=== PATIENT | female | born 1945 | race Caucasian/White ===

== ENCOUNTER 2017-08-26 14:57 | Inpatient (IN) | payer MEDICARE ==
[~2017-08-26] VITALS: Ht 167.6 cm; Wt 68.9 kg
[2017-08-26 16:20] LABS: BILIRUBIN,URINE 1+ (NEGATIVE); KETONES,URINE NEGATIVE (NEGATIVE); LEUKOCYTE ESTERASE ,URINE 1+ (NEGATIVE); NITRITE,URINE NEGATIVE (NEGATIVE); URINE UROBILINOGEN 0.2 mg/dL (0.2 - 1)
[2017-08-26 16:24] LABS: CLARITY,URINE SL CLOUDY (CLEAR); COLOR,URINE STRAW (YELLOW); PROTEIN,URINE DIPSTICK TRACE (NEGATIVE)
[2017-08-26 16:53] LABS: BASOPHILS % 0.2 % (0.0-1.0); EOSINOPHILS % 0.4 % (0.0-6.0); HEMATOCRIT 39.4 % (34.2-44.1); HEMOGLOBIN 13.1 g/dL (12.0-16.0); MEAN CORPUSCULAR HEMOGLOBIN 30.8 pg (28-32); MEAN CORPUSCULAR HGB CONC 33.2 g/dL (31-35); MEAN CORPUSCULAR VOLUME 92.7 fL (81-99); MONOCYTES # (AUTO) 0.7 (0.2-0.8); MONOCYTES % 8.2 % (4.4-11.3); NEUTROPHILS # (AUTO) 5.4 (2.1-6.9); NEUTROPHILS % 66.8 % (38.7-80.0); PLATELET COUNT 304 x10e3/uL (140-360); RED BLOOD COUNT 4.25 x10e6/uL (3.6-5.1); RED CELL DISTRIBUTION WIDTH 13.2 % (11.7-14.4)
[2017-08-26 16:56] LABS: BACTERIA,URINE FEW /HPF; RBC,URINE 0-5 /HPF (0-5); WBC,URINE (MAN) 0-5 /HPF (0-5)
[2017-08-26 16:57] LABS: EPITHELIAL CELLS,URINE RARE /LPF
[2017-08-26 17:01] LABS: INR 1.03; PARTIAL THROMBOPLASTIN TIME 28.1 seconds (23.8-35.5); PROTHROMBIN TIME 12.7 seconds (11.9-14.5)
[2017-08-26 17:08] LABS: ALANINE AMINOTRANSFERASE 22 IU/L (0-55); ALBUMIN/GLOBULIN RATIO 1.2 (0.8-2.0); ALKALINE PHOSPHATASE 82 IU/L (40-150); ANION GAP 14.3 mmol/L (8-16); BLOOD UREA NITROGEN 9 mg/dL (7-26); BUN/CREATININE RATIO 12 (6-25); CALCIUM 9.2 mg/dL (8.4-10.2); CARBON DIOXIDE 26 mmol/L (22-29); CHLORIDE 105 mmol/L (98-107); CREATININE, SERUM 0.75 mg/dL (0.57-1.11); EST GLOMERULAR FILTRATION RATE > 60 ML/MIN (60-); GLUCOSE 88 mg/dL (74-118); POTASSIUM 3.3 mmol/L (3.5-5.1); SODIUM 142 mmol/L (136-145)
[2017-08-26] MEDS ORDERED: SODIUM CHLORIDE 0.9% 1000ML 500 ML IV STA (17:53)
[2017-08-26] MEDS ORDERED: SODIUM CHLORIDE 0.9% 1000ML 1,000 ML IV STA (17:53)
[2017-08-26] MEDS ORDERED: METRONIDAZOLE 500MG/NS 100ML 100 ML IV ONE (18:00)
[2017-08-26] MEDS ORDERED: CIPROFLOXACIN 400 MG/D5W 200ML 200 ML IV ONE (18:00)
[2017-08-26] MEDS ORDERED: DIATRIZOATE MEGL/DIATRIZOA SOD 30 ML BTL PO ONE (18:06)
[2017-08-26 18:19] LABS: MAGNESIUM 1.9 MG/DL (1.3-2.1)
[2017-08-26] MEDS: PANTOPRAZOLE 40 MG 10ML VIAL IV SCH (18:30)
[2017-08-26] MEDS: METRONIDAZOLE 500MG/NS 100ML 100 ML IV SCH (18:30)
--- NOTE | 2017-08-26 18:34 | Diagnostic Imaging Report ---
PROCEDURE: A single AP view of the chest. COMPARISON: None. INDICATIONS: BLEEDING COLON FINDINGS: Lines/tubes: None. Lungs: The lungs are well inflated and clear. There is no evidence of pneumonia or pulmonary edema. Pleura: There is no pleural effusion or pneumothorax. Heart and mediastinum: The heart and the mediastinum are unremarkable. Bones: No acute bony abnormality. IMPRESSION: 1. No acute cardiopulmonary disease. Dictated by: Juanito Patel M.D. on 08/26/2017 at 18:34 Electronically approved by: Juanito Patel M.D. on 08/26/2017 at 18:34
[2017-08-26] MEDS ORDERED: SODIUM CHLORIDE 0.9% 50ML 50 ML ONE (19:31)
[2017-08-26] MEDS ORDERED: IOPAMIDOL 370 MG/ML 200 ML INFUS..BTL INJ ONE (19:31)
[2017-08-26 20:24] VITALS: BP 163/72
--- NOTE | 2017-08-26 20:28 | Diagnostic Imaging Report ---
EXAM: CT Abdomen and Pelvis WITH contrast INDICATION: Abdominal pain, rectal bleeding, colitis COMPARISON: None. TECHNIQUE: Abdomen and pelvis were scanned utilizing a multidetector helical scanner from the lung base to the pubic symphysis after administration of IV contrast. Coronal and sagittal reformations were obtained. Routine protocol was performed. Scan was performed when during portal venous phase. IV CONTRAST: 100 mL of Isovue-370 ORAL CONTRAST: Gastrografin RADIATION DOSE: Total DLP: 364 mGy*cm Estimated effective dose: (DLP x 0.015 x size factor) mSv COMPLICATIONS: None FINDINGS: LINES and TUBES: None. LOWER THORAX: Unremarkable HEPATOBILIARY: No focal hepatic lesions. No biliary ductal dilation. GALLBLADDER: No radio-opaque stones or sludge. No wall thickening. SPLEEN: No splenomegaly. PANCREAS: No focal masses or ductal dilatation. ADRENALS: No adrenal nodules KIDNEYS/URETERS: Kidneys enhance symmetrically. No hydronephrosis. No cystic or solid mass lesions. No stones. Right extrarenal pelvis. GI TRACT: No abnormal distention, wall thickening, or evidence of bowel obstruction. Extensive diverticulosis throughout the sigmoid and descending colon. Severe wall thickening throughout the descending colon. No surrounding fluid collections, abscesses. Appendix is mildly enlarged measuring 0.7 cm in diameter without associated enhancement or wall thickening or surrounding fat stranding. PELVIC ORGANS/BLADDER: Unremarkable. LYMPH NODES: No lymphadenopathy. VESSELS: Unremarkable. PERITONEUM / RETROPERITONEUM: No free air or fluid. BONES: Severe degenerative changes at L2-L3. SOFT TISSUES: Unremarkable. IMPRESSION: Extensive diverticulosis without acute diverticulitis of the descending colon. Recommend follow-up until resolution to exclude underlying pathology. Mild nonspecific prominence of the appendix without wall thickening or surrounding inflammatory changes. Signed by: Dr. Latia Johnson M.D. on 08/26/2017 8:24 PM
[2017-08-26] MEDS ORDERED: PEG (High)/E-LYTE SOLN 4,000 ML BTL PO ONE (22:45)
[2017-08-27] VITALS (11 sets, daily range): BP systolic 120–151; BP diastolic 59–72
[2017-08-27] MEDS: METRONIDAZOLE 500MG/NS 100ML 100 ML IV SCH ×4 (01:21→21:00)
[2017-08-27] MEDS: SODIUM CHLORIDE 0.9% 1000ML 1,000 ML IV SCH ×4 (01:57→11:10)
[2017-08-27] MEDS: CIPROFLOXACIN 400 MG/D5W 200ML 200 ML IV SCH ×2 (05:04→17:30)
[2017-08-27 07:57] LABS: HEMATOCRIT 34.9 % (34.2-44.1); HEMOGLOBIN 11.3 g/dL (12.0-16.0)
[2017-08-27 08:13] LABS: ANION GAP 12.5 mmol/L (8-16); BLOOD UREA NITROGEN 5 mg/dL (7-26); BUN/CREATININE RATIO 8 (6-25); CALCIUM 8.3 mg/dL (8.4-10.2); CARBON DIOXIDE 25 mmol/L (22-29); CHLORIDE 107 mmol/L (98-107); CREATININE, SERUM 0.61 mg/dL (0.57-1.11); EST GLOMERULAR FILTRATION RATE > 60 ML/MIN (60-); GLUCOSE 85 mg/dL (74-118); POTASSIUM 3.5 mmol/L (3.5-5.1); SODIUM 141 mmol/L (136-145)
[2017-08-27] MEDS: PANTOPRAZOLE 40 MG 10ML VIAL IV SCH (09:00)
[2017-08-27] MEDS: MORPHINE SULFATE 2 MG/ML SYR IV PRN (11:10)
[2017-08-27] MEDS: ONDANSETRON HCL INJ 2 MG/ML VIAL IV PRN (11:10)
[2017-08-27] MEDS ORDERED: LIDOCAINE HCL 2% LOCAL INJ 5 ML SDV VIAL INJ ONE (12:05)
[2017-08-27] MEDS ORDERED: EPHEDRINE SULFATE INJ 50 MG/10 ML SYR ONE (12:05)
[2017-08-27] MEDS ORDERED: PROPOFOL IV EMULSION 10 MG/ML 50 ML VIAL ONE (12:05)
[2017-08-27 12:34] LABS: HEMATOCRIT 35.6 % (34.2-44.1); HEMOGLOBIN 11.7 g/dL (12.0-16.0)
[2017-08-27] MEDS ORDERED: FENTANYL CITRATE/PF 100MCG/2 ML INJ ONE (14:53)
[2017-08-28] VITALS: BP 112/52
[2017-08-28] MEDS: SODIUM CHLORIDE 0.9% 1000ML 1,000 ML IV SCH (01:40)
[2017-08-28] MEDS: MORPHINE SULFATE 2 MG/ML SYR IV PRN (03:15)
[2017-08-28] MEDS: ONDANSETRON HCL INJ 2 MG/ML VIAL IV PRN (03:18)
[2017-08-28 04:00] VITALS: BP 114/57
[2017-08-28] MEDS: CIPROFLOXACIN 400 MG/D5W 200ML 200 ML IV SCH (06:00)
[2017-08-28 07:51] VITALS: BP 116/59
[2017-08-28 08:58] LABS: BASOPHILS % 0.3 % (0.0-1.0); EOSINOPHILS # (AUTO) 0.1 (0.0-0.4); EOSINOPHILS % 1.2 % (0.0-6.0); HEMATOCRIT 33.2 % (34.2-44.1); LYMPHOCYTES # (AUTO) 1.6 (1.0-3.2); LYMPHOCYTES % 16.6 % (18.0-39.1); MEAN CORPUSCULAR HEMOGLOBIN 31.2 pg (28-32); MEAN CORPUSCULAR HGB CONC 33.1 g/dL (31-35); MEAN CORPUSCULAR VOLUME 94.1 fL (81-99); MONOCYTES # (AUTO) 0.7 (0.2-0.8); MONOCYTES % 7.3 % (4.4-11.3); NEUTROPHILS # (AUTO) 7.3 (2.1-6.9); NEUTROPHILS % 73.9 % (38.7-80.0); PLATELET COUNT 241 x10e3/uL (140-360); RED BLOOD COUNT 3.53 x10e6/uL (3.6-5.1); RED CELL DISTRIBUTION WIDTH 13.4 % (11.7-14.4)
[2017-08-28] MEDS: METRONIDAZOLE 500MG/NS 100ML 100 ML IV SCH (09:00)
[2017-08-28 09:17] LABS: ANION GAP 11.7 mmol/L (8-16); BLOOD UREA NITROGEN 5 mg/dL (7-26); BUN/CREATININE RATIO 8 (6-25); CALCIUM 8.1 mg/dL (8.4-10.2); CARBON DIOXIDE 25 mmol/L (22-29); CHLORIDE 106 mmol/L (98-107); CREATININE, SERUM 0.62 mg/dL (0.57-1.11); EST GLOMERULAR FILTRATION RATE > 60 ML/MIN (60-); GLUCOSE 87 mg/dL (74-118); POTASSIUM 3.7 mmol/L (3.5-5.1); SODIUM 139 mmol/L (136-145)
[2017-08-28 12:45] VITALS: BP 121/64
--- NOTE | 2017-08-28 17:42 | Discharge Summary ---
BREAST SURGEON: Dr. Renato Eid. FINAL DIAGNOSES 1. Diverticular bleed. 2. Status post colonoscopy with diverticular disease. SUMMARY: This 72-year-old female came in with rectal bleed. Patient is otherwise stable. She is comfortable. Her hemoglobin dropped from 13 down to 11.3. Today it is 11.0. Patient is stable. Patient had low potassium, and that was corrected. No further rectal bleed. She did have diverticular disease previously. Endoscopy showed she does have diverticular disease without acute bleed. Patient has been cleared to go home. She is stable. She will follow up with Dr. Renato Eid in the future as per his instruction. She will follow up with Dr. Jesus Hamilton, her family physician, in approximately 1 to 2 weeks for repeated blood work if needed. Patient is otherwise stable and discharged home today. Job#: [id number]
== END 2017-08-28 15:01 | disposition home or self-care (01) | DRG 378 ==
LOC: ER 14:57 → ERHOLD 16:05 → MED/SURG3 18:34
PROVIDERS: ADMIT Internal Medicine; ATTEND Internal Medicine
PROC: 0DBM8ZX Excision of Descending Colon, Via Natural or Artificial Opening Endoscopic, Diagnostic (ICD-10-PCS; principal; 2017-08-27 18:06)
DX: K57.31 Diverticulosis of large intestine without perforation or abscess with bleeding (principal); K55.9 Vascular disorder of intestine, unspecified; D12.4 Benign neoplasm of descending colon
CPT/HCPCS: 36415; 45380; 71045; 74177; 80048; 80053; 81001; 82550; 82553; 83690; 83735; 84484; 85014; 85018; 85025; 85610; 85730; 86850; 86900; 88305; 93005; 96361; 99284; J2001; J2270; J2405; J7030; Q9967